=== PATIENT | male | born 1995 | race Caucasian/White ===

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

== ENCOUNTER 2019-10-12 17:10 | Emergency (ER) | payer OTHER, SELFPAY ==
[~2019-10-12] VITALS: Ht 172.7 cm; Wt 123.8 kg
[~2019-10-12 17:10] MED LIST: IBUP-1022 PO
[2019-10-12] MEDS ORDERED: BENA25CA4 PO (17:15)
[2019-10-12] MEDS ORDERED: IBUP-1022 PO (17:15)
[2019-10-12] MEDS ORDERED: LIDOCAINE 4% CREAM 5GM (LMX4) TOP ONE (19:30)
[2019-10-12] MEDS ORDERED: LIDO5CRE6 TOP (19:41)
[2019-10-12 19:45] VITALS: BP 161/88
== END 2019-10-12 19:51 | disposition home or self-care (01) ==
LOC: M ED 17:10
DX: L55.1 Sunburn of second degree (principal); T22.239 Burn of second degree of unspecified upper arm; T31.0 Burns involving less than 10% of body surface; Y92.9 Unspecified place or not applicable; Y93.9 Activity, unspecified; Z88.0 Allergy status to penicillin